=== PATIENT | male | born 1995 | race Caucasian/White ===

== ENCOUNTER 2025-05-18 18:07 | Emergency (ER) | payer OTHER ==
[~2025-05-18] VITALS: Ht 170.2 cm; Wt 99.2 kg
--- NOTE | 2025-05-18 18:24 | Physician Documentation ---
History of Present Illness ~ Chief Complaint: Groin Pain Stated Complaint: LOWER PAIN Time Seen by MD: 18:24 HPI Patient presents to the emergency room for evaluation of a groin pain of acute onset today. Patient does not remember any exact time that he may have lifted something or fallen or got hit by anything but he did notice it after he was lifting some batteries. No prior instances. No problems urinating. Medication Reconciliation Allergies: Coded Allergies: amoxicillin (Verified Allergy, Unknown, 05/18/25) clavulanic acid (Verified Allergy, Unknown, 05/18/25) Uncoded Allergies: RED DYE 40 (Allergy, Unknown, 05/18/25) Review of Systems ROS All review of systems negative except as per HPI Physical Exam Vital Signs: Temperature: 97.6, Heart Rate: 75, Respiratory Rate: 16, BP: 134/83, Pulse Oximetry: 96, Weight: 99.200 Oxygen Flow Rate: 0 Physical Exam General: Patient is awake, alert, oriented x4 in no acute distress and well appearing.~ Head: Normocephalic and atraumatic. Eyes: Conjunctival normal. EOMI. PERRL. ENT: Mucous membranes moist. Neck: Supple, trachea is midline. Chest: Clear to auscultation bilaterally without rales, rhonchi, or wheezes. There is no accessory muscle use or retractions. Cardiac: RRR without murmurs, gallops, or rubs. Abdomen: 0.5 cm mass to suprapubic area with tenderness to palpation with Valsalva Progress Results/Orders Results/Orders Vital Signs 05/18/25 18:19 Temp 97.6 Pulse 75 Resp 16 B/P (MAP) 134/83 Pulse Ox 96 O2 Flow Rate 0 Medical Decision Making Findings Patient presents to the emergency room with small tender mass to his lower abd ominal wall. Differentials include but are not limited to hernia, lymphadenopathy, tumor, testicular pathology. Physical exam consistent with hernia in the need to follow up with his doctor discussed for possible referral. ER precautions discussed. He had not feel he requires imaging I do not suspect incarcerated hernia. Departure Disposition: HOME / SELF CARE / HOMELESS Impression: Primary Impression: Hernia Condition: Stable Discharge Instructions: Hernia Additional Instructions: Follow up with your doctor for need for possible referral Referrals: NO PRIMARY CARE PROVIDER (PCP) Education Educated: Patient Educated regarding: diagnosis, treatment, need for follow up Signature Scribe Signature: No scribe Attestation: The note accurately reflects work and decisions made by me.Ej Gaming MD 05/18/25 19:04 EJ GAMING MD May 18, 2025 18:24
[2025-05-18 19:17] VITALS: BP 132/82; PULSE 72; RESP 16; TEMP 98.6; O2SAT 99
== END 2025-05-18 19:17 | disposition home or self-care (01) ==
LOC: ER 18:09
DX: K46.9 Unspecified abdominal hernia without obstruction or gangrene (principal); R10.30 Lower abdominal pain, unspecified; Z88.0 Allergy status to penicillin
CPT/HCPCS: 99282